=== PATIENT | male | born 1950 | race Caucasian/White ===

== ENCOUNTER 2017-05-02 19:38 | Emergency (ER) | payer OTHER ==
[~2017-05-02] VITALS: Ht 177.8 cm; Wt 73.0 kg
[2017-05-02] MEDS ORDERED: METFORMIN HCL500 MG PO (20:12)
[2017-05-02] MEDS ORDERED: VASOTEC10 MG PO (20:12)
[2017-05-02] MEDS ORDERED: PLAVIX75 MG PO (20:12)
[2017-05-02] MEDS ORDERED: ATORVASTATIN CA10 MG PO (20:12)
[2017-05-02] MEDS ORDERED: FLOMAX0.4 MG PO (20:12)
[2017-05-02] MEDS ORDERED: FENOFIBRATE67 MG (20:12)
[2017-05-02] MEDS ORDERED: KETOROLAC TROMETHAMINE 30 MG/ML VIAL IV STA (20:51)
[2017-05-02] MEDS ORDERED: CEFTRIAXONE SOD 1 GM VIAL IV SCH (21:00)
[2017-05-02] MEDS ORDERED: SODIUM CHLORIDE 0.9% 1000ML 1,000 ML IV SCH (21:00)
[2017-05-02 22:11] VITALS: BP 138/79
== END 2017-05-02 22:11 | disposition home or self-care (01) ==
LOC: FSED 19:38
DX: M54.9 Dorsalgia, unspecified (principal); N20.1 Calculus of ureter; N30.91 Cystitis, unspecified with hematuria; I10 Essential (primary) hypertension
CPT/HCPCS: 74176; 80053; 81003; 85025; 87086; 87186; 96360; 96365; 99283; J1885